=== PATIENT | female | born 1970 ===

== ENCOUNTER 2016-09-26 15:06 | Emergency (ER) | payer OTHER ==
[2016-09-26 15:15] VITALS: RESP 18; O2SAT 99
--- NOTE | 2016-09-26 15:59 | C.PDOC ---
History Of Present Illness 45-year-old female, presents to the emergency department with complaints of pelvic pain for 2 months that is intermittent in nature, and worse with menstrual cycle. Pain described as pressure like sensation, and is associated with discomfort during intercourse. Patient states she has an IUD x1 year. Patient was seen in clinic today for evaluation, and was told that they were unable to find her IUD. Patient states her pain worsened after she went home, and developed light bleeding, resulting in her coming to the ED for evaluation. Denies numbness/weakness, nausea/vomiting, or any other associated symptoms. LMP : 09/22. Time Seen by Provider: 09/26/16 15:22 Chief Complaint (Nursing): Female Genitourinary History Per: Patient History/Exam Limitations: no limitations Onset/Duration Of Symptoms: Days Current Symptoms Are (Timing): Still Present Severity: Moderate Past Medical History Reviewed: Historical Data, Nursing Documentation, Vital Signs Vital Signs: Last Vital Signs Temp 98.4 F 09/26/16 18:00 Pulse 70 09/26/16 18:00 Resp 18 09/26/16 18:00 BP 98/60 L 09/26/16 18:00 Pulse Ox 99 09/26/16 18:00 - Medical History PMH: No Chronic Diseases Family History: States: No Known Family Hx - Social History Hx Alcohol Use: No Hx Substance Use: No - Immunization History Hx Tetanus Toxoid Vaccination: No Hx Influenza Vaccination: No Hx Pneumococcal Vaccination: No Review Of Systems Except As Marked, All Systems Reviewed And Found Negative. Constitutional: Negative for: Fever, Chills Cardiovascular: Negative for: Chest Pain Respiratory: Negative for: Shortness of Breath Gastrointestinal: Negative for: Vomiting Genitourinary: Positive for: Vaginal Bleeding, Pelvic Pain Physical Exam - Physical Exam Appears: Non-toxic, No Acute Distress Skin: Warm, Dry, No Rash Head: Atraumatic Eye(s): bilateral: Normal Inspection, EOMI Nose: Normal Oral Mucosa: Moist Neck: Normal ROM Chest: Symmetrical Cardiovascular: Rhythm Regular Respiratory: Normal Breath Sounds, No Accessory Muscle Use Gastrointestinal/Abdominal: Soft, Tenderness (mild, suprapubic. ), No Distention , No Guarding, No Rebound Pelvic: Vaginal Bleeding (Mild vaginal bleeding), No Vaginal Discharge, No Cervical Motion Tenderness, No Cervix Open (Closed), No Adnexal Tenderness, No Mass Extremity: Normal ROM Neurological/Psych: Oriented x3, Normal Speech ED Course And Treatment O2 Sat by Pulse Oximetry: 99 Pulse Ox Interpretation: Normal - CT Scan/US US PELVIS Other Rad Studies (CT/US): Read By Radiologist, Radiology Report Reviewed CT/US Interpretation: Accession No. : [id number]. Patient Name / ID : AD CONTIID / [id number]. Exam Date : 09/26/2016 17:00:00 ( Approved ). Study Comment : Sex / Age : F / [id number]. Creator : Ulises Mejia. Dictator : Ulises Mejia. Cream Separator Operator : Party Chief : Ulises Mejia. Approver2 : Report Date : 09/26/2016 17:37:02. My Comment : . HISTORY: pelvic pain and bleeding, , has IUD. COMPARISON: No prior study for comparison. TECHNIQUE : Transabdominal and endovaginal ultrasound examination of the pelvis was performed. FINDINGS: UTERUS: Measures 10.2 x 5.3 x 7.1 cm. Normal in size and appearance. No fibroid or other mass lesion seen. ENDOMETRIUM: Measures 9.1 mm in diameter. IUD seen at appropriate position. CERVIX: No cervical abnormality identified. RIGHT OVARY: Measures 2.8 x 1.9 x 2.5 cm. No solid mass. Normal flow. LEFT OVARY: Measures 3.4 x 1.4 x 3.2 cm. No solid mass. Normal flow. FREE FLUID: No significant free fluid noted. OTHER FINDINGS: None. IMPRESSION: The IUD is seen at appropriate position. No evidence of acute pathology in the uterus and ovaries. Medical Decision Making Medical Decision Making: Impression: Pelvic pain Plan: * POC * Urine Culture * Urinalysis * Ultrasound * Toradol Re-eval UA was not clean catch, blood present, no UTI US shows IUD is seen at appropriate position. No evidence of acute pathology in the uterus and ovaries. Upon reevaluation patient reports pain is improving. I discussed results of US with patient and instruct to follow up with OB.office services coordinator and take NSAID for pain, refrain from sexual intercourse until symptoms improve Disposition Counseled Patient/Family Regarding: Studies Performed, Diagnosis, Need For Followup, Rx Given - Disposition Referrals: [facility] [Outside] [facility] [Outside] [facility] [Outside] Disposition: HOME/ ROUTINE Disposition Time: 18:00 Condition: GOOD Additional Instructions: Por favor, siga con ob / office services coordinator para nichelle evaluacin ms [place] [facility] para el dolor cuando sea necesario La ecografa es normal, el DIU est en el lugar apropiado y no hay quiste u otra anormalidad. Prescriptions: Naproxen [Naprosyn] 1 tab PO BID PRN #25 tab PRN Reason: Pain Instructions: Pelvic Pain in Women (ED) Print Language: SOMALI - POA Present On Arrival: None - Clinical Impression Clinical Impression: Pelvic pain, IUD check up - Scribe Statement The provider has reviewed the documentation as recorded by the Humberto Escobar All medical record entries made by the Scribe were at my direction and personally dictated by me. I have reviewed the chart and agree that the record accurately reflects my personal performance of the history, physical exam, medical decision making, and the department course for this patient. I have also personally directed, reviewed, and agree with the discharge instructions and disposition.
[2016-09-26 16:08] LABS: RBC URINE 461 /hpf (0-3); URINE BACTERIA OCC (<OCC); URINE BILIRUBIN NEGATIVE (NEGATIVE); URINE BLOOD 3+ (NEGATIVE); URINE COLOR Yellow (YELLOW); URINE GLUCOSE (UA) NORMAL (Normal); URINE KETONE NEGATIVE (NEGATIVE); URINE LEUKOCYTE ESTERASE 1+ Leu/uL (Negative); URINE PROTEIN NEGATIVE (NEGATIVE); URINE UROBILINOGEN NORMAL mg/dL (0.2-1.0); WBC URINE 8 /hpf (0-5)
--- NOTE | 2016-09-26 17:38 | US ---
HISTORY: pelvic pain and bleeding, , has IUD COMPARISON: No prior study for comparison TECHNIQUE: Transabdominal and endovaginal ultrasound examination of the pelvis was performed. FINDINGS: UTERUS: Measures 10.2 x 5.3 x 7.1 cm. Normal in size and appearance. No fibroid or other mass lesion seen. ENDOMETRIUM: Measures 9.1 mm in diameter. IUD seen at appropriate position. CERVIX: No cervical abnormality identified. RIGHT OVARY: Measures 2.8 x 1.9 x 2.5 cm. No solid mass. Normal flow. LEFT OVARY: Measures 3.4 x 1.4 x 3.2 cm. No solid mass. Normal flow. FREE FLUID: No significant free fluid noted. OTHER FINDINGS: None. IMPRESSION: The IUD is seen at appropriate position. No evidence of acute pathology in the uterus and ovaries.
[2016-09-26 18:04] VITALS: BP 98/60; PULSE 70; TEMP 98.4
== END 2016-09-26 18:04 | disposition home or self-care (01) ==
LOC: C.ER 15:06
DX: R10.2 Pelvic and perineal pain (principal); Z97.5 Presence of (intrauterine) contraceptive device
CPT/HCPCS: 76830; 76856; 81001; 87086; 96372; 99284; J1885